=== PATIENT | male | born 1960 ===

== ENCOUNTER 2020-03-26 17:14 | Emergency (ER) | payer MEDICAID ==
--- NOTE | 2020-03-26 18:39 | EDM.PDOC ---
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 Indirect exposure to COVID patients where he works. NO SOB and no N/V/D. ED ROS GENERAL - Review of Systems Review Of Systems: See Below Constitutional: Reports: Fever, Fatigue HEENT: Reports: No Symptoms Respiratory: Reports: Cough Cardiovascular: Reports: No Symptoms GI/Abdominal: Reports: No Symptoms Skin: Reports: No Symptoms Neurological: Reports: No Symptoms ED EXAM, GENERAL - Physical Exam Exam: See Below Exam Limited By: No Limitations General Appearance: Alert, No Apparent Distress Head: Atraumatic, Normocephalic Neck: Normal Inspection Respiratory/Chest: No Respiratory Distress, No Accessory Muscle Use Neurological: Alert, Oriented, CN II-XII Intact, Normal Cognition Psychiatric: Normal Affect Skin Exam: Warm, Dry Course - Orders/Labs/Meds Orders: Active Orders 24 hr Category Date Time Status Isolation [COMM] Routine Oth 03/26/20 18:08 Active Labs: Laboratory Tests 03/26/20 Range/Units 17:30 SARS CoV-2 RNA Rapid CARINA Negative Departure - Departure Time of Disposition: 18:40 Disposition: Home, Self-Care 01 Condition: Good Clinical Impression: Viral syndrome - Discharge Information *PRESCRIPTION DRUG MONITORING PROGRAM REVIEWED*: Not Applicable *COPY OF PRESCRIPTION DRUG MONITORING REPORT IN PATIENT ROSHAN: Not Applicable Instructions: Viral Respiratory Infection, [id number] - My Orders Last 24 Hours: My Active Orders 03/26/20 18:08 Isolation [COMM] Routine - Assessment/Plan Last 24 Hours: My Active Orders 03/26/20 18:08 Isolation [COMM] Routine
== END 2020-03-26 18:25 | disposition home or self-care (01) ==
LOC: LB.ED 17:14
DX: B34.9 Viral infection, unspecified (principal); Z20.828 Contact with and (suspected) exposure to other viral communicable diseases
CPT/HCPCS: 87430; 87804; 87804-59; 99283; U0002